=== PATIENT | male | born 1970 | race Caucasian/White ===

== ENCOUNTER 2017-06-26 04:16 | Inpatient (IN) | payer OTHER ==
[2017-06-26 04:32] LABS: ADD MAN DIFF? NO
[2017-06-26 04:34] LABS: BASO % 0 % (0-3); EOS # 0.1 x10^3/uL (0.0-0.7); EOS % 2 % (0-3); HEMATOCRIT 44.5 % (39.0-53.0); HEMOGLOBIN 15.6 g/dL (13.0-17.5); LYMPH # 1.4 x10^3/uL (1.0-4.8); LYMPH % 22 % (24-48); MEAN CORPUSCULAR HEMOGLOBIN 32 pg (25-35); MEAN CORPUSCULAR HGB CONC 35 g/dL (31-37); MEAN CORPUSCULAR VOLUME 90 fL (79-100); MONO # 0.6 x10^3/uL (0.0-1.1); MONO % 9 % (0-9); NEUT # 4.3 x10^3uL (1.8-7.7); NEUT % 67 % (31-73); PLATELET COUNT 169 x10^3/uL (140-400); RED BLOOD COUNT 4.95 x10^6/uL (4.30-5.70); RED CELL DISTRIBUTION WIDTH 13.5 % (11.5-14.5); WHITE BLOOD COUNT 6.5 x10^3/uL (4.0-11.0)
[2017-06-26] MEDS: NITROGLYCERIN OINT 1 GM PACKET. TP (04:36)
[2017-06-26] MEDS: IV NORMAL SALINE 1000ML BAG 1,000 ML IV ×3 (04:36→21:30)
[2017-06-26 04:51] LABS: ANION GAP 5 (6-14); BLOOD UREA NITROGEN 21 mg/dL (8-26); BUN/CREATININE RATIO 15 (6-20); CALCIUM 9.1 mg/dL (8.5-10.1); CARBON DIOXIDE 30 mmol/L (21-32); CHLORIDE 104 mmol/L (98-107); CREATININE 1.4 mg/dL (0.7-1.3); GFR 54.6; GLUCOSE 104 mg/dL (70-99); POTASSIUM 3.5 mmol/L (3.5-5.1); SODIUM 139 mmol/L (136-145)
[2017-06-26 04:58] LABS: ALBUMIN 3.8 g/dL (3.4-5.0); ALBUMIN/GLOBULIN RATIO 1.1 (1.0-1.7); ALK PHOS 76 U/L (46-116); ALT (SGPT) 28 U/L (16-63); AST (SGOT) 25 U/L (15-37); TOTAL BILIRUBIN 0.5 mg/dL (0.2-1.0); TOTAL PROTEIN 7.3 g/dL (6.4-8.2)
[2017-06-26 05:06] LABS: TROPONINI < 0.017 ng/mL (0.000-0.055)
[2017-06-26] MEDS ORDERED: ONDANSETRON PF 4 MG/2 ML VIAL. IV ×2 (05:30→15:00)
[2017-06-26] MEDS ORDERED: NITROGLYCERIN SUBLINGUAL 0.4 MG BOTTLE OF 25. SL (05:30)
[2017-06-26] MEDS ORDERED: MORPHINE SULFATE 4 MG/ML DISP.SYRIN. IV ×2 (05:30→15:00)
[2017-06-26 09:00] LABS: TROPONINI < 0.017 ng/mL (0.000-0.055)
[2017-06-26 09:01] LABS: CHOLESTEROL 139 mg/dL (0-200); HDLC 38 mg/dL (40-60); LDLC 86 mg/dL (0-100); NON-HDL CHOLESTEROL 101 mg/dL (0-129); TRIGLYCERIDES 73 mg/dL (0-150); VLDLC 15 mg/dL (0-40)
[2017-06-26 09:03] LABS: CHOLESTEROL/HDL RATIO 3.7
[2017-06-26 09:10] LABS: THYROID STIM HORMONE (TSH) 2.138 uIU/mL (0.358-3.74)
[2017-06-26 11:52] LABS: TROPONINI < 0.017 ng/mL (0.000-0.055)
[2017-06-26] MEDS: ATORVASTATIN CALCIUM 20 MG TABLET PO (12:25)
[2017-06-26] MEDS: ACETAMINOPHEN 325 MG TABLET. PO (12:25)
[2017-06-26] MEDS: ASPIRIN ENTERIC COATED 81 MG TABLET.DR. PO (12:25)
[2017-06-26] MEDS: HYDROcodone/APAP 5/325MG 1 TAB TABLET PO (14:45)
[2017-06-26] MEDS: LEVOTHYROXINE 125 MCG TABLET PO (14:45)
[2017-06-26] MEDS ORDERED: hydrALAZINE 20 MG/ML VIAL. IVP (15:00)
[2017-06-26] MEDS ORDERED: DOCUSATE SODIUM 100 MG CAPSULE. PO (15:00)
[2017-06-26] MEDS ORDERED: ACETAMINOPHEN 325 MG TABLET. PO (15:00)
[2017-06-26] MEDS: ENOXAPARIN 40 MG/0.4 ML SYRINGE. SQ (16:00)
[2017-06-26] MEDS: traMADol 50 MG TABLET PO (17:34)
[2017-06-27 04:11] LABS: ADD MAN DIFF? NO
[2017-06-27 04:22] LABS: BASO % 0 % (0-3); EOS # 0.2 x10^3/uL (0.0-0.7); EOS % 3 % (0-3); HEMATOCRIT 39.7 % (39.0-53.0); HEMOGLOBIN 13.8 g/dL (13.0-17.5); LYMPH # 2.1 x10^3/uL (1.0-4.8); LYMPH % 28 % (24-48); MEAN CORPUSCULAR HEMOGLOBIN 31 pg (25-35); MEAN CORPUSCULAR HGB CONC 35 g/dL (31-37); MEAN CORPUSCULAR VOLUME 90 fL (79-100); MONO # 0.8 x10^3/uL (0.0-1.1); MONO % 11 % (0-9); NEUT # 4.3 x10^3uL (1.8-7.7); NEUT % 58 % (31-73); PLATELET COUNT 152 x10^3/uL (140-400); RED BLOOD COUNT 4.43 x10^6/uL (4.30-5.70); RED CELL DISTRIBUTION WIDTH 13.6 % (11.5-14.5); WHITE BLOOD COUNT 7.4 x10^3/uL (4.0-11.0)
[2017-06-27 04:37] LABS: ANION GAP 6 (6-14); BLOOD UREA NITROGEN 13 mg/dL (8-26); CALCIUM 8.6 mg/dL (8.5-10.1); CARBON DIOXIDE 29 mmol/L (21-32); CHLORIDE 108 mmol/L (98-107); CREATININE 1.2 mg/dL (0.7-1.3); GFR 65.2; GLUCOSE 98 mg/dL (70-99); POTASSIUM 3.7 mmol/L (3.5-5.1); SODIUM 143 mmol/L (136-145)
[2017-06-27] MEDS: IV NORMAL SALINE 1000ML BAG 1,000 ML IV (05:42)
[2017-06-27] MEDS: LEVOTHYROXINE 125 MCG TABLET PO (05:42)
[2017-06-27] MEDS ORDERED: MIDAZOLAM HCL/PF 2 MG/2 ML VIAL. (09:24)
[2017-06-27] MEDS ORDERED: fentaNYL PF VIAL 100 MCG/2 ML VIAL (09:24)
[2017-06-27] MEDS ORDERED: IODIXANOL 320 MG/ML 100 ML VIAL. ×2 (09:26→09:39)
[2017-06-27] MEDS ORDERED: HEPARIN for IV BOLUS 10,000 UNIT/10 ML VIAL. (09:51)
[2017-06-27] MEDS ORDERED: NITROGLYCERIN SUBLINGUAL 0.4 MG BOTTLE OF 25. SL (10:15)
[2017-06-27] MEDS ORDERED: 0.9 % SODIUM CHLORIDE 10 ML DISP.SYRIN. IV (10:15)
[2017-06-27] MEDS: LIDOCAINE 2% 20 ML VIAL. IJ (10:21)
[2017-06-27] MEDS: MIDAZOLAM HCL/PF 2 MG/2 ML VIAL. IV (10:22)
[2017-06-27] MEDS: fentaNYL PF VIAL 100 MCG/2 ML VIAL IV (10:22)
[2017-06-27] MEDS: IODIXANOL 320 MG/ML 100 ML VIAL. IART (10:23)
[2017-06-27] MEDS: HEPARIN for IV BOLUS 10,000 UNIT/10 ML VIAL. IV (10:24)
[2017-06-27] MEDS ORDERED: LIDOCAINE 2% 20 ML VIAL. (10:35)
[2017-06-27] MEDS: NITROGLYCERIN 200 MCG/2 ML SYRINGE FOR CATH/VASC LAB. IART (11:00)
[2017-06-27] MEDS: ASPIRIN ENTERIC COATED 81 MG TABLET.DR. PO (14:22)
[2017-06-27] MEDS ORDERED: ATORVASTATIN CALCIUM 10 MG TABLET. PO (21:00)
[2017-06-28] MEDS ORDERED: ASPIRIN ENTERIC COATED 81 MG TABLET.DR. PO (08:00)
== END 2017-06-27 16:30 | disposition home or self-care (01) | DRG 287 ==
LOC: ER 04:16 → 5 SOUTH 05:24
PROC: 4A023N7 Measurement of Cardiac Sampling and Pressure, Left Heart, Percutaneous Approach (ICD-10-PCS; principal; 2017-06-27)
PROC: B2111ZZ Fluoroscopy of Multiple Coronary Arteries using Low Osmolar Contrast (ICD-10-PCS; 2017-06-27)
PROC: B2151ZZ Fluoroscopy of Left Heart using Low Osmolar Contrast (ICD-10-PCS; 2017-06-27)
DX: I25.110 Atherosclerotic heart disease of native coronary artery with unstable angina pectoris (principal); N18.3 Chronic kidney disease, stage 3 (moderate); E03.9 Hypothyroidism, unspecified; M19.90 Unspecified osteoarthritis, unspecified site; E66.9 Obesity, unspecified; Z88.0 Allergy status to penicillin; Z90.49 Acquired absence of other specified parts of digestive tract; Z82.49 Family history of ischemic heart disease and other diseases of the circulatory system; Z68.31 Body mass index [BMI] 31.0-31.9, adult
CPT/HCPCS: 36415; 71045; 80048; 80053; 80061; 84443; 84484; 85025; 93005; 93306; 93458; 93571; 96360; 99152; 99153; 99285-25; C1769; C1771; C1887; G0269; J1644; J2250; J3010; J3490; J7030